=== PATIENT | male | born 1990 | race Caucasian/White ===

== ENCOUNTER → 2021-06-21 08:43 | Outpatient (BNVA) | payer BC, SELFPAY | PROVIDERS: Family Provider Nurse Practitioner; PCP Nurse Practitioner; Visit Provider Nurse Practitioner | DX: I10 Essential (primary) hypertension (principal) | CPT/HCPCS: 80053; 80061 ==

== ENCOUNTER → 2021-11-03 08:42 | Outpatient (BNVA) | payer BC, SELFPAY | PROVIDERS: Family Provider Nurse Practitioner; PCP Nurse Practitioner; Visit Provider Nurse Practitioner | DX: F41.1 Generalized anxiety disorder (principal); I10 Essential (primary) hypertension; J32.9 Chronic sinusitis, unspecified | CPT/HCPCS: 80053; 80061 ==

== ENCOUNTER → 2022-05-31 10:12 | Outpatient (BNVA) | payer BC, SELFPAY | PROVIDERS: Family Provider Nurse Practitioner; PCP Nurse Practitioner; Visit Provider Nurse Practitioner | DX: I10 Essential (primary) hypertension (principal); F41.1 Generalized anxiety disorder; R40.0 Somnolence | CPT/HCPCS: 80053; 80061 ==

== ENCOUNTER → 2023-02-02 09:50 | Outpatient (BNVA) | payer BC, SELFPAY | PROVIDERS: Family Provider Nurse Practitioner; PCP Nurse Practitioner; Visit Provider Nurse Practitioner | DX: F41.1 Generalized anxiety disorder (principal); I10 Essential (primary) hypertension; E66.9 Obesity, unspecified | CPT/HCPCS: 80053; 80061 ==

== ENCOUNTER → 2023-06-14 16:08 | Outpatient (BNVA) | payer BC, SELFPAY | PROVIDERS: Family Provider Nurse Practitioner; PCP Nurse Practitioner; Visit Provider Nurse Practitioner | DX: E66.9 Obesity, unspecified (principal); F41.1 Generalized anxiety disorder; I10 Essential (primary) hypertension; K21.9 Gastro-esophageal reflux disease without esophagitis; J30.89 Other allergic rhinitis | CPT/HCPCS: 80053; 80061; 83721; 84443; 86003 ==

== ENCOUNTER → 2023-12-18 14:26 | Outpatient (BNVA) | payer BC, SELFPAY | PROVIDERS: Family Provider Nurse Practitioner; PCP Nurse Practitioner; Visit Provider Nurse Practitioner | DX: I10 Essential (primary) hypertension (principal); F41.1 Generalized anxiety disorder; K21.9 Gastro-esophageal reflux disease without esophagitis; E78.1 Pure hyperglyceridemia; J30.89 Other allergic rhinitis; E66.9 Obesity, unspecified; M25.511 Pain in right shoulder | CPT/HCPCS: 73030; 80053; 80061 ==

== ENCOUNTER 2023-12-29 06:55 | Outpatient (CLI) | payer BC, SELFPAY ==
--- NOTE | 2023-12-29 07:00 | US_ITS ---
WS: [id number] ABDOMINAL ULTRASOUND LIMITED REASON FOR VISIT: R74.01 - Elevation of levels of liver transaminase levels TECHNIQUE: Grayscale and Doppler ultrasound examination of the abdomen. FINDINGS: Pancreas: No pancreatic mass or ductal dilatation. No calcification. Abdominal aorta and IVC: Normal Liver: Liver measures 16.0 cm in length. The liver is moderately echogenic compared to the adjacent r ight kidney. No focal liver lesion. Gallbladder: Gallbladder wall thickness measures 0.2 mm. No gallbladder calculi. Normal common bile d uct. Right kidney: Right kidney measures 10.2 cm x 5.6 cm x 6.1 cm. Right kidney cortex measures 1.1 cm. N o mass, hydronephrosis, or calculi. No ascites. US/US liver [id number] IMPRESSION: Moderate increased echogenicity of the liver which is nonspecific but most comm only seen with fatty infiltration or hepatitis.
== END 2023-12-29 06:56 | disposition home or self-care (01) ==
LOC: RAD 06:55
PROVIDERS: Family Provider Nurse Practitioner; PCP Nurse Practitioner; Visit Provider Nurse Practitioner
DX: R74.01 Elevation of levels of liver transaminase levels (principal); R93.5 Abnormal findings on diagnostic imaging of other abdominal regions, including retroperitoneum
CPT/HCPCS: 76705

== ENCOUNTER → 2024-06-05 15:42 | Outpatient (BNVA) | payer BC, SELFPAY | PROVIDERS: Family Provider Nurse Practitioner; PCP Nurse Practitioner; Visit Provider Nurse Practitioner | DX: I10 Essential (primary) hypertension (principal); F41.1 Generalized anxiety disorder; E78.1 Pure hyperglyceridemia | CPT/HCPCS: 80053; 80061; 82607; 84403; 84443; 85025 ==

== ENCOUNTER → 2025-02-20 10:00 | Outpatient (BNVA) | payer BC, SELFPAY | PROVIDERS: Family Provider Nurse Practitioner; PCP Nurse Practitioner; Visit Provider Nurse Practitioner | DX: I10 Essential (primary) hypertension (principal); E55.9 Vitamin D deficiency, unspecified | CPT/HCPCS: 80053; 80061; 82306; 82607; 85025 ==